=== PATIENT | male | born 1995 | race African-American/Black ===

== ENCOUNTER 2023-07-30 00:28 | Emergency (ER) | payer MEDICAID, OTHER ==
[~2023-07-30] VITALS: Ht 172.7 cm; Wt 65.0 kg
[2023-07-30 00:32] VITALS: O2SAT 100
[2023-07-30 01:21] LABS: BASOPHILS % 0.3 % (0.0-2.0); EOSINOPHILS % 0.3 % (0.0-5.0); HEMATOCRIT. 45.8 % (42.0-52.0); HEMOGLOBIN. 15.8 g/dL (14.0-18.0); LYMPHOCYTES % 7.1 % (20.0-50.0); MEAN CORPUSCULAR HEMOGLOBIN 31.7 pg (28.0-32.0); MEAN CORPUSCULAR HGB CONC 34.5 g/dL (31.0-37.0); MEAN PLATELET VOLUME 8.2 fl (7.4-10.4); MONOCYTES % 8.2 % (2.0-8.0); NEUTROPHILS % 84.1 % (40.0-76.0); PLATELET 196 x1000/uL (130-400); RED BLOOD CELL COUNT 4.98 mill/uL (4.7-6.1); RED CELL DISTRIBUTION WIDTH 12.8 % (11.6-14.6); WHITE BLOOD COUNT 6.3 x1000/uL (4.5-11.0)
[2023-07-30 01:38] LABS: ALANINE AMINOTRANSFERASE 10 IU/L (10-49); ALBUMIN 4.9 g/dL (3.2-4.8); ASPARTATE AMINOTRANSFERASE 25 IU/L (<34); CALCIUM 9.6 mg/dL (8.7-10.4); CARBON DIOXIDE 23 mEq/L (21-32); CHLORIDE 105 mEq/L (98-107); CREATININE 1.2 mg/dL (0.6-1.3); GLUCOSE 125 mg/dL (70-105); PROTEIN TOTAL 8.9 g/dL (6.0-8.3); SODIUM 138 mEq/L (136-145); UREA NITROGEN BLOOD 16 mg/dL (9-23)
[2023-07-30] MEDS: MORPHINE SULFATE 4 MG/ML INJ (FOR IV/IM USE) IV STA (01:45)
[2023-07-30] MEDS: ONDANSETRON HCL 4MG/2ML INJ IV STA (01:47)
[2023-07-30] MEDS: SODIUM CHLORIDE 0.9% 1,000 ML IV ONE ×2 (01:47→01:58)
[2023-07-30] MEDS: FAMOTIDINE 20MG/2ML VIAL IV STA (01:47)
[2023-07-30 03:00] VITALS: BP 109/60; PULSE 103; RESP 18; TEMP 98
[2023-07-30] MEDS ORDERED: FAMO-135 MT (05:08)
[2023-07-30] MEDS ORDERED: ONDA4TAB50 MT (05:08)
[2023-07-30] MEDS ORDERED: IOHEXOL-300 100 ML BOTTLE ONE (07:24)
== END 2023-07-30 05:00 | disposition home or self-care (01) ==
LOC: ER 00:28
DX: R10.84 Generalized abdominal pain (principal); R11.10 Vomiting, unspecified; R19.7 Diarrhea, unspecified; A05.9 Bacterial foodborne intoxication, unspecified
CPT/HCPCS: 80053; 83605; 83690; 85025; 36415; 74177; 96361; 96374; 96375; 99291; Q9967; J3490; J2405; J2270; J7030; Z7610 ×4